=== PATIENT | female | born 1945 | race Caucasian/White ===

== ENCOUNTER → 2018-04-03 | Outpatient (CLI) | payer OTHER ==
[~2018-04-03] MED LIST: OMNIPAQUE 350 MG/ML, 100ML BOTTLE ONE
== END | disposition home or self-care (01) ==
LOC: CFH 13:17
PROVIDERS: ATTEND Internal Medicine Cardiovascular Disease
DX: I65.23 Occlusion and stenosis of bilateral carotid arteries (principal)
CPT/HCPCS: 70498; 82565; Q9967

== ENCOUNTER 2018-05-22 13:00 | Inpatient (IN) | payer OTHER ==
[~2018-05-22] VITALS: Ht 160 cm; Wt 73.2 kg
[2018-05-22 14:01] LABS: BASOPHILS # (AUTO) 0.04 x10^3/uL (0-0.1); BASOPHILS % (AUTO) 1 % (0-1); EOSINOPHILS # (AUTO) 0.24 x10^3/uL (0-0.4); EOSINOPHILS % (AUTO) 3 % (1-7); LYMPHOCYTES # (AUTO) 1.55 x10^3/uL (1-3.4); LYMPHOCYTES % (AUTO) 21 % (22-44); MD NO; MEAN CORPUSCULAR HEMOGLOBIN 32.1 pg (27.0-34.8); MEAN CORPUSCULAR VOLUME 94.6 fL (80-100); MEAN PLATELET VOLUME 7.6 fL (7.4-10.4); MONOCYTES # (AUTO) 0.74 x10^3/uL (0.2-0.8); MONOCYTES % (AUTO) 10 % (2-9); NEUTROPHILS # (AUTO) 4.78 x10^3/uL (1.8-6.8); NEUTROPHILS % (AUTO) 65 % (42-75); PLATELET COUNT 288 x10^3/uL (130-400); RED BLOOD COUNT 4.13 x10^6/uL (3.82-5.3); RED CELL DISTRIBUTION WIDTH 14.2 % (9.6-15.2)
[2018-05-22 14:09] LABS: ALANINE AMINOTRANSFERASE 26 U/L (12-78); ALBUMIN 3.8 g/dL (3.4-5.0); ANION GAP 7 mmol/L (5-15); CALCIUM 8.8 mg/dL (8.5-10.1); CHLORIDE 96 mmol/L (98-107); CREATININE 0.62 mg/dL (0.55-1.02)
[2018-05-22 14:12] LABS: ALKALINE PHOSPHATASE 65 U/L (45-117); BILIRUBIN,TOTAL 0.4 mg/dL (0.2-1.0); TOTAL PROTEIN 6.6 g/dL (6.4-8.2)
[2018-05-22] MEDS ORDERED: ATOR20TA9 PO (14:31)
[2018-05-22] MEDS ORDERED: CLOP75TA52 PO (14:31)
[2018-05-22] MEDS ORDERED: ASPI-496 PO (14:31)
[2018-05-22] MEDS ORDERED: METO25TA35 PO (14:31)
[2018-05-22] MEDS ORDERED: AMLO10TA6 PO (14:31)
[2018-05-22] MEDS ORDERED: VALS1TAB30 PO (14:31)
[2018-05-22] MEDS ORDERED: UBID100C24 PO (15:18)
[2018-05-22] MEDS ORDERED: MAGN71.5 PO (15:18)
[2018-05-22] MEDS ORDERED: OMEG1CAP34 PO (15:18)
[2018-05-22] MEDS ORDERED: ASCO1TAB2 PO (15:18)
[2018-05-22] MEDS ORDERED: MULT-709 PO (15:18)
[2018-05-22] MEDS ORDERED: VITA150T PO (15:18)
[2018-05-22] MEDS ORDERED: CHOL2000 PO (15:18)
[2018-05-22] MEDS ORDERED: CALC1TAB4 PO (15:18)
[2018-05-24] MEDS ORDERED: NITROGLYCERIN/D5W PMX 50 MG/250 ML ONE (01:00)
[2018-05-24] MEDS ORDERED: FENTANYL PF 100 MCG/2ML ONE ×2 (13:18→17:27)
[2018-05-24] MEDS ORDERED: MIDAZOLAM 1 MG/ML, 2ML ONE (13:18)
[2018-05-24] MEDS ORDERED: LACTATED RINGERS 1,000 ML IV SCH (13:23)
[2018-05-24] MEDS ORDERED: PAPAVERINE 30 MG/ML, 2ML ONE (13:55)
[2018-05-24] MEDS ORDERED: HEPARIN 1,000 UNITS/ML, 10ML ONE (13:55)
[2018-05-24] MEDS ORDERED: LIDOCAINE/PF 1%, 30ML ONE (13:55)
[2018-05-24] MEDS ORDERED: BUPIVACAINE/PF-EPI 0.5% 1:200K ONE (13:55)
[2018-05-24] MEDS ORDERED: PROTAMINE SULFATE 10 MG/ML, 5ML ONE (13:55)
[2018-05-24] MEDS ORDERED: THROMBIN 20,000 UNIT VIAL TP ONE (13:55)
[2018-05-24] MEDS ORDERED: CEFAZOLIN 1,000 MG ONE (15:10)
[2018-05-24] MEDS ORDERED: PROPOFOL 10 MG/ML, 20ML ONE (15:10)
[2018-05-24] MEDS ORDERED: ROCURONIUM 10MG/ML,5ML ONE (15:10)
[2018-05-24] MEDS ORDERED: DEXAMETHASONE 4 MG/ML, 1ML ONE ×2 (15:10)
[2018-05-24] MEDS ORDERED: HALOPERIDOL 5 MG/ML IV PRN (15:30)
[2018-05-24] MEDS ORDERED: PROMETHAZINE 25 MG/ML, 1ML IV PRN (15:30)
[2018-05-24] MEDS ORDERED: OXYcodone 5 MG/5 ML ORAL.SOL UDC PO PRN (15:30)
[2018-05-24] MEDS ORDERED: LABETALOL 5MG/ML, 20ML IV PRN (15:30)
[2018-05-24] MEDS ORDERED: MEPERIDINE/PF 25MG/0.5ML IVPush PRN (15:30)
[2018-05-24] MEDS ORDERED: FENTANYL PF 100 MCG/2ML IV PRN (15:30)
[2018-05-24] MEDS ORDERED: hydrALAzine 20 MG/ML, 1ML IV PRN ×2 (15:30→22:00)
[2018-05-24] MEDS ORDERED: ACETAMINOPHEN 325 MG TABLET PO PRN ×2 (15:30→22:00)
[2018-05-24] MEDS ORDERED: HYDROmorphone 1 MG/ML, 1ML IV PRN (15:30)
[2018-05-24] MEDS ORDERED: PHENYLEPHRINE 10 MG/ML ONE (16:09)
[2018-05-24] MEDS ORDERED: LABETALOL 5MG/ML, 20ML ONE (18:12)
[2018-05-24] MEDS ORDERED: hydrALAzine 20 MG/ML, 1ML ONE (18:12)
[2018-05-24] MEDS ORDERED: ACETAMINOPHEN 650 MG/20.3 ML UDC ONE (18:24)
[2018-05-24] MEDS ORDERED: OXYcodone 5 MG/5 ML ORAL.SOL UDC ONE (18:25)
[2018-05-24] MEDS ORDERED: ASPIRIN 325 MG TABLET EC PO ONE (19:30)
[2018-05-24] MEDS ORDERED: ONDANSETRON 2MG/ML, 2ML IV PRN (22:00)
[2018-05-24] MEDS ORDERED: HYDROcodone/APAP 5/325 TABLET PO PRN (22:00)
[2018-05-24] MEDS ORDERED: MORPHINE SULFATE 4 MG/ML, 1ML IV PRN (22:00)
[2018-05-24] MEDS ORDERED: LABETALOL 5MG/ML, 20ML IVPush PRN (22:00)
[2018-05-24] MEDS: POTASSIUM CHLORIDE 20 MEQ in LACTATED RINGERS 1,000 ML IV SCH (22:31)
[2018-05-24 23:57] VITALS: BP 105/55
[2018-05-25] MEDS: CEFAZOLIN 2,000 MG in SODIUM CHLORIDE 0.9% 50 ML IVPB SCH ×2 (00:13→08:29)
[2018-05-25 03:59] VITALS: BP 127/62
[2018-05-25] MEDS ORDERED: METOPROLOL TARTRATE 25 MG TABLET PO SCH (06:00)
[2018-05-25 07:30] VITALS: BP 146/65
[2018-05-25] MEDS: POTASSIUM CHLORIDE 20 MEQ in LACTATED RINGERS 1,000 ML IV SCH (08:30)
[2018-05-25] MEDS ORDERED: HYDR-3240 PO (08:59)
[2018-05-25] MEDS ORDERED: ONDA4TAB7 PO (08:59)
[2018-05-25] MEDS ORDERED: CHOLECALCIFEROL 1,000 UNIT TABLET PO SCH (09:00)
[2018-05-25] MEDS ORDERED: MAGNESIUM CHLORIDE 64 MG TABLET.DR PO SCH (09:00)
[2018-05-25] MEDS ORDERED: HYDROCHLOROTHIAZIDE 25 MG TABLET PO SCH (09:00)
[2018-05-25] MEDS ORDERED: AMLODIPINE 5 MG TABLET PO SCH (09:00)
[2018-05-25] MEDS ORDERED: ASPIRIN 325 MG TABLET EC PO SCH (09:00)
[2018-05-25] MEDS ORDERED: VALSARTAN 320 MG TABLET PO SCH (09:00)
[2018-05-25] MEDS ORDERED: SODIUM CHLORIDE FLUSH 10ML SYR IVF SCH (09:00)
[2018-05-25 10:22] VITALS: BP 147/69
[2018-05-25] MEDS ORDERED: ATORVASTATIN 20 MG TABLET PO SCH (21:00)
== END 2018-05-25 11:08 | disposition home or self-care (01) | DRG 27 ==
LOC: ORIP 05-24 13:02 → EDSTATUS 05-24 15:00 → 4NOR 05-24 21:11 → DCLOUNGE 05-25 10:53
PROVIDERS: ADMIT Surgery; ATTEND Surgery
PROC: 03UK3JZ Supplement Right Internal Carotid Artery with Synthetic Substitute, Percutaneous Approach (ICD-10-PCS; 2018-05-24)
PROC: 03CK3ZZ Extirpation of Matter from Right Internal Carotid Artery, Percutaneous Approach (ICD-10-PCS; principal; 2018-05-24 15:00)
DX: I65.23 Occlusion and stenosis of bilateral carotid arteries (principal); I10 Essential (primary) hypertension; I48.0 Paroxysmal atrial fibrillation; E78.5 Hyperlipidemia, unspecified; Z72.89 Other problems related to lifestyle; Z86.73 Personal history of transient ischemic attack (TIA), and cerebral infarction without residual deficits; I25.10 Atherosclerotic heart disease of native coronary artery without angina pectoris; Z82.3 Family history of stroke
CPT/HCPCS: 36415; 80053; 85025; 86850; 86900; 93005; C1729; G0378; J0690; J1100; J1644; J2250; J2704; J2720; J3010; J3480; J3490; C1768; J2370; J2440; J7120

== ENCOUNTER 2018-07-21 10:00 | Inpatient (IN) | payer OTHER ==
[~2018-07-21] VITALS: Ht 160 cm; Wt 74.8 kg
[~2018-07-21 10:00] MED LIST changes: +AMLO10TA6 PO; +ASCO1TAB2 PO; +ASPI-496 PO; +ATOR20TA37 PO; +CALC1TAB4 PO; +CHOL2000 PO; +CLOP75TA52 PO; +HYDR-3240 PO; +MAGN71.5 PO; +METO25TA35 PO; +MULT-709 PO; +OMEG1CAP34 PO; -OMNIPAQUE 350 MG/ML, 100ML BOTTLE ONE; +ONDA4TAB7 PO; +UBID100C24 PO; +VALS1TAB30 PO; +VITA150T PO
[2018-08-16] MEDS ORDERED: DEXAMETHASONE 4 MG/ML, 1ML ONE (10:21)
[2018-08-16] MEDS ORDERED: SUCCINYLCHOLINE 20 MG/ML, 10ML ONE (10:21)
[2018-08-16] MEDS ORDERED: CEFAZOLIN 1,000 MG ONE (10:21)
[2018-08-16] MEDS ORDERED: ONDANSETRON 2MG/ML, 2ML ONE (10:21)
[2018-08-16] MEDS ORDERED: PROPOFOL 10 MG/ML, 20ML ONE (10:21)
[2018-08-16] MEDS ORDERED: ROCURONIUM 10MG/ML,5ML ONE (10:21)
[2018-08-16] MEDS ORDERED: PHENYLEPHRINE 10 MG/ML ONE (10:21)
[2018-08-16 14:28] VITALS: BP 158/69
[2018-08-16] MEDS ORDERED: LACTATED RINGERS 1,000 ML IV SCH (14:35)
[2018-08-16] MEDS ORDERED: THROMBIN 20,000 UNIT VIAL TP ONE (15:38)
[2018-08-16] MEDS ORDERED: BUPIVACAINE/PF-EPI 0.5% 1:200K ONE (15:38)
[2018-08-16] MEDS ORDERED: HEPARIN 1,000 UNITS/ML, 10ML ONE (15:38)
[2018-08-16] MEDS ORDERED: PROTAMINE SULFATE 10 MG/ML, 5ML ONE (15:39)
[2018-08-16] MEDS ORDERED: PAPAVERINE 30 MG/ML, 2ML ONE (15:39)
[2018-08-16] MEDS ORDERED: LIDOCAINE 1%-EPI 1:100K, 30ML ONE (15:39)
[2018-08-16] MEDS ORDERED: NITROGLYCERIN 5 MG/ML, 10ML ONE (15:42)
[2018-08-16] MEDS ORDERED: FENTANYL PF 100 MCG/2ML ONE ×2 (15:44→16:34)
[2018-08-16] MEDS ORDERED: OXYcodone 5 MG/5 ML ORAL.SOL UDC PO PRN (16:00)
[2018-08-16] MEDS ORDERED: hydrALAzine 20 MG/ML, 1ML IV PRN ×2 (16:00→22:30)
[2018-08-16] MEDS ORDERED: DIPHENHYDRAMINE 50 MG/ML, 1ML IVPush PRN (16:00)
[2018-08-16] MEDS ORDERED: LABETALOL 5MG/ML, 20ML IV PRN (16:00)
[2018-08-16] MEDS ORDERED: MEPERIDINE/PF 25MG/0.5ML IVPush PRN (16:00)
[2018-08-16] MEDS ORDERED: FENTANYL PF 100 MCG/2ML IV PRN (16:00)
[2018-08-16] MEDS ORDERED: PROMETHAZINE 25 MG/ML, 1ML IV PRN (16:00)
[2018-08-16] MEDS ORDERED: ALBUTEROL SULFATE 2.5 MG/3 ML ONE (18:11)
[2018-08-16] MEDS ORDERED: LABETALOL 5MG/ML, 20ML ONE (18:15)
[2018-08-16] MEDS ORDERED: hydrALAzine 20 MG/ML, 1ML ONE (18:32)
[2018-08-16] MEDS ORDERED: OXYcodone 5 MG/5 ML ORAL.SOL UDC ONE (18:51)
[2018-08-16] MEDS ORDERED: HYDROmorphone 2 MG/ML, 1ML ONE (18:51)
[2018-08-16] MEDS: HYDROmorphone 2 MG/ML, 1ML IVPush PRN ×2 (18:55→19:19)
[2018-08-16] MEDS ORDERED: ALBUTEROL SULFATE 2.5 MG/3 ML NPPB PRN (19:30)
[2018-08-16] MEDS ORDERED: ASPIRIN 81 MG TABLET EC PO ONE (20:00)
[2018-08-16] MEDS ORDERED: ACETAMINOPHEN 325 MG TABLET PO PRN (22:00)
[2018-08-16] MEDS ORDERED: LABETALOL 5MG/ML, 20ML IVPush PRN (22:00)
[2018-08-16] MEDS ORDERED: morphine SULFATE 10 MG/ML, 1ML IV PRN (22:00)
[2018-08-16] MEDS ORDERED: HYDROcodone/APAP 5/325 TABLET PO PRN (22:00)
[2018-08-16] MEDS ORDERED: ONDANSETRON 2MG/ML, 2ML IV PRN (22:00)
[2018-08-16] MEDS ORDERED: CEFAZOLIN PMX 2GM/100ML 100 ML IVPB SCH (22:30)
[2018-08-16 23:44] VITALS: BP 112/61
[2018-08-16] MEDS: CEFAZOLIN PMX 2GM/50ML 50 ML IVPB SCH (23:55)
[2018-08-16] MEDS: POTASSIUM CHLORIDE 20 MEQ in LACTATED RINGERS 1,000 ML IV SCH (23:55)
[2018-08-17 04:14] VITALS: BP 110/54
[2018-08-17 07:06] VITALS: BP 133/57
[2018-08-17] MEDS: CEFAZOLIN PMX 2GM/50ML 50 ML IVPB SCH (08:26)
[2018-08-17] MEDS ORDERED: SODIUM CHLORIDE FLUSH 10ML SYR IVF SCH (09:00)
[2018-08-17] MEDS: POTASSIUM CHLORIDE 20 MEQ in LACTATED RINGERS 1,000 ML IV SCH (11:15)
[2018-08-17] MEDS ORDERED: ACET325T14 PO (14:35)
== END 2018-08-17 14:50 | disposition home or self-care (01) | DRG 39 ==
LOC: ORIP 08-16 13:44 → 4NOR 08-16 20:23 → DCLOUNGE 08-17 14:40
PROVIDERS: ADMIT Surgery; ATTEND Surgery
PROC: 03CJ0ZZ Extirpation of Matter from Left Common Carotid Artery, Open Approach (ICD-10-PCS; 2018-08-16)
PROC: 03CL0ZZ Extirpation of Matter from Left Internal Carotid Artery, Open Approach (ICD-10-PCS; 2018-08-16)
PROC: 03UJ0KZ Supplement Left Common Carotid Artery with Nonautologous Tissue Substitute, Open Approach (ICD-10-PCS; 2018-08-16)
PROC: 03UL0KZ Supplement Left Internal Carotid Artery with Nonautologous Tissue Substitute, Open Approach (ICD-10-PCS; 2018-08-16)
PROC: 03HY32Z Insertion of Monitoring Device into Upper Artery, Percutaneous Approach (ICD-10-PCS; 2018-08-16)
PROC: 4A133B1 Monitoring of Arterial Pressure, Peripheral, Percutaneous Approach (ICD-10-PCS; 2018-08-16)
PROC: 4A133J1 Monitoring of Arterial Pulse, Peripheral, Percutaneous Approach (ICD-10-PCS; 2018-08-16)
PROC: 03CN0ZZ Extirpation of Matter from Left External Carotid Artery, Open Approach (ICD-10-PCS; principal; 2018-08-16 15:30)
DX: I65.22 Occlusion and stenosis of left carotid artery (principal); I10 Essential (primary) hypertension; E78.5 Hyperlipidemia, unspecified; I48.0 Paroxysmal atrial fibrillation; I25.10 Atherosclerotic heart disease of native coronary artery without angina pectoris; F17.210 Nicotine dependence, cigarettes, uncomplicated; Z79.899 Other long term (current) drug therapy; Z91.048 Other nonmedicinal substance allergy status; Z85.3 Personal history of malignant neoplasm of breast; Z82.3 Family history of stroke
CPT/HCPCS: 36415; 86850; 86900; C1729; G0378; J0690; J1100; J1170; J1644; J2405; J2704; J2720; J3010; J3480; J3490; J7613; C1768; J0330; J0360; J2370; J2440; J7120

== ENCOUNTER → 2019-01-08 | Outpatient (CLI) | payer MEDICARE ==
[~2019-01-08] MED LIST changes: +ACET325T14 PO; -AMLO10TA6 PO; +AMLO10TA8 PO
== END | disposition home or self-care (01) ==
LOC: CVU 13:45
PROVIDERS: ATTEND Surgery
DX: I65.23 Occlusion and stenosis of bilateral carotid arteries (principal)
CPT/HCPCS: 93880

== ENCOUNTER 2019-08-14 13:10 | Outpatient (CLI) | payer MEDICARE | END 2019-08-14 23:59 | disposition home or self-care (01) | LOC: CFH 13:10 | PROVIDERS: ATTEND Family Medicine | DX: S09.90XA Unspecified injury of head, initial encounter (principal); G31.89 Other specified degenerative diseases of nervous system; G93.0 Cerebral cysts; F17.200 Nicotine dependence, unspecified, uncomplicated; X58.XXXA Exposure to other specified factors, initial encounter; Y93.89 Activity, other specified; Y92.89 Other specified places as the place of occurrence of the external cause; Y99.8 Other external cause status | CPT/HCPCS: 70551 ==

== ENCOUNTER → 2021-01-19 | Outpatient (CLI) | payer MEDICARE ==
[~2021-01-19] MED LIST changes: +AMLO-211 PO; -AMLO10TA8 PO; +HYDR-2214 PO; -HYDR-3240 PO
== END | disposition home or self-care (01) ==
LOC: CVU 12:16
PROVIDERS: ATTEND Internal Medicine Cardiovascular Disease
DX: I65.23 Occlusion and stenosis of bilateral carotid arteries (principal); I70.8 Atherosclerosis of other arteries
CPT/HCPCS: 93880; 93922; 93925